=== PATIENT | female | born 1970 | race Hispanic/Latino ===

== ENCOUNTER 2017-09-20 09:02 | Outpatient (CLI) | payer OTHER ==
--- NOTE | 2017-09-20 10:49 | CT ---
EXAM: LUMBAR SPINE CT WITHOUT CONTRAST: HISTORY: Lumbar spine pain. Pain radiating to both buttocks. The patient fell 3 months ago. COMPARISON: None. TECHNIQUE: Lumbar spine CT is performed without contrast. Reformatted images are submitted for interpretation. FINDINGS: The gallbladder is surgically absent. Visualized solid organs are unremarkable. Symmetric attenuati on of the psoas muscles. There is atrophy and scarring of the upper pole of the right kidney. Bilat erally, no obstructive uropathy. There are diverticula in the sigmoid colon. No diverticulitis. Lumbar spine vertebral body height is maintained. No fracture. No malalignment. No spondylolisthes is. No spondylolysis. There are degenerative changes in the left and right intraarticular facet raj nts at L5-S1 with vacuum joint phenomenon, right greater than left. There is no malalignment. Limited evaluation of the contents of the central spinal canal and neural foramina due to technique. T11-T12 and T12-L1: No high-grade central canal stenosis. Neural foramen are patent. L1-L2: No high-grade central canal stenosis. Neural foramen are patent. L2-L3: No high-grade central canal stenosis. Neural foramen are patent. L3-L4: No high-grade central canal stenosis. Neural foramen are patent. L4-L5: There is a central/left subarticular disk protrusion. Disk material abuts and probably cause s minimal mass effect upon the traversing left L5 nerve root. Mild central canal stenosis. Neural f oramen are patent. L5-S1: Generalized disk bulge with disk material abutting but not obscuring either traversing S1 ner ve root. Mild bilateral foraminal narrowing. IMPRESSION: Degenerative disk disease at L4-L5 and L5-S1 as detailed above. Barring any contraindications, rosalia r interrogation with MRI is recommended. POS: [facility]
== END 2017-09-20 09:03 | disposition home or self-care (01) ==
LOC: CT 09:02
PROVIDERS: ATTEND Family Medicine
DX: M54.5 Low back pain (principal); M51.37 Other intervertebral disc degeneration, lumbosacral region; W19.XXXA Unspecified fall, initial encounter
CPT/HCPCS: 72131